=== PATIENT | female | born 1980 | race Caucasian/White ===

== ENCOUNTER → 2020-09-26 17:36 | Outpatient (CLI) | payer BC, SELFPAY ==
--- NOTE | ~2020-09-26 | MM_ITS ---
EXAMINATION: MM screening ollie BI w raul HISTORY: Screening TECHNIQUE: Craniocaudal and mediolateral oblique 3-D tomosynthesis images were obtained and synthetic 2-D images were generated. CAD analysis was submitted and interpreted. COMPARISON: Comparison to multiple prior studies sequentially, with oldest reviewed study dated 11/2010. BREAST PARENCHYMAL COMPOSITION: There are scattered areas of fibroglandular density. FINDINGS: There is no evidence of suspicious mass, calcification, or architectural distortion to sugg est malignancy in either breast. There has been no suspicious interval change. IMPRESSION: 1. No mammographic evidence of malignancy. 2. Recommend routine screening mammography in one year. BI-RADS Category 1: Negative Reviewed, dictated and finalized at location A. IDE UPHOLSTERER
== END ==
PROVIDERS: PCP Family Medicine Sports Medicine; Visit Provider Obstetrics & Gynecology
DX: Z12.31 Encounter for screening mammogram for malignant neoplasm of breast (principal)
CPT/HCPCS: 77063; 77067

== ENCOUNTER → 2020-11-21 09:30 | Outpatient (CLI) | payer BC, SELFPAY ==
--- NOTE | ~2020-11-21 | MR_ITS ---
EXAMINATION: MR orbits face neck wo con EXAM DATE: 11/21/2020 10:40 INDICATION: Left neck mass Neck Mass . Symptoms 2 months. TECHNIQUE: Magnetic resonance imaging (MRI) images of the MR orbits face neck wo con were obtained. The following sequences were acquired: Axial T1, axial T2 STIR, coronal T1, coronal T2 STIR, sagittal T1. There is no prior study for comparison. FINDINGS: Some bulging to the left supraclavicular skin contour, with expected fat signal intensity d eep to this, potentially could be a lipoma. No capsule is identified. The orbits are unremarkable. So me metallic artifact from right-sided dental fillings. Submandibular and probably glands are unremark able. No cervical or superior mediastinal lymphadenopathy. Tonsils are normal in size. Mild to modera te disc disease at C5-6. IMPRESSION: Possible left supraclavicular lipoma. Reviewed, dictated and finalized at location B. [employer] SALES REPRESENTATIVE
== END ==
PROVIDERS: PCP Family Medicine Sports Medicine; Visit Provider Otolaryngology
DX: R22.1 Localized swelling, mass and lump, neck (principal)
CPT/HCPCS: 70540

== ENCOUNTER 2020-12-12 02:02 | Outpatient (CLI) | payer BC, SELFPAY ==
[2020-12-12 18:37] LABS: SARS-CoV-2 RNA PCR Negative
== END 2020-12-12 02:03 | disposition home or self-care (01) ==
LOC: ANHCOVIDDT 02:02
PROVIDERS: PCP Family Medicine Sports Medicine; Visit Provider Otolaryngology
DX: Z01.812 Encounter for preprocedural laboratory examination (principal); Z20.822 Contact with and (suspected) exposure to COVID-19
CPT/HCPCS: C9803; U0003; U0005

== ENCOUNTER 2020-12-12 08:07 | Outpatient (CLI) | payer BC, SELFPAY ==
--- NOTE | 2020-12-12 08:08 | ECG_ITS ---
Measurements Intervals [place] Rate: 89 P: 58 AR: 157 QRS: -1 QRSD: 104 T: 12 QT: 369 QTc: 451 Interpretive Statements SINUS RHYTHM NONSPECIFIC T-WAVE ABNORMALITY- ANT/INF LEADS BASELINE ARTIFACT- II, III, AVF BORDERLINE ECG Electronically Signed On 12-12-2020 8:18:44 FIRE MANAGEMENT SPECIALIST by Stan Abel D.O.
== END 2020-12-12 08:08 | disposition home or self-care (01) ==
LOC: ANHSURGERY 08:08
PROVIDERS: PCP Family Medicine Sports Medicine; Visit Provider Otolaryngology
DX: Z20.810 Contact with and (suspected) exposure to anthrax (principal); E78.00 Pure hypercholesterolemia, unspecified
CPT/HCPCS: 93005

== ENCOUNTER 2020-12-15 01:57 | Day surgery (SDC) | payer BC, SELFPAY ==
--- NOTE | 2020-12-13 13:28 | PM.IMHP ---
H&P: HPI History of Present Illness Date/Time: 12/13/20 13:28 Chief Complaint: Left supraclavicular/neck mass Narrative: Radha Gibson is a 40 year old female Who presents for planned surgical procedure. She denies any changes in her past medical history or symptoms. Review of Systems Constitutional: Constitutional: Denies fatigue, Denies fever(s) and Denies lethargy Eyes: Eyes: Denies blurry vision and Denies change in vision ENT: Reports as per HPI Cardiovascular: Cardiovascular: Denies chest pain Respiratory: Respiratory: Denies cough Endocrine: Endocrine: Denies fatigue Hematologic/Lymphatic: Hematologic/Lymphatic: Denies easy bleeding, Denies easy bruising and Denies lymphadenopathy Allergic/Immunologic: Allergic/Immunologic: Denies seasonal rhinorrhea [facility] Social History Social History (Updated 11/06/20 @ 09:48 by Rachel Clark MA) Smoking packs per day: 0.5 Smoking cigarettes per day: 10.0 Years smoked: 10 Smoking pack-years: 5.00 Smoking status: Former smoker Second hand tobacco smoke exposure: No Smoking end date: 11/24/09 Alcohol intake: current Drinks per week: 5 Substance use: never Substance use type: does not use Additional living arrangements comments: AND CHILDREN Spiritual care concerns: No Meds Home Medications and Allergies Home Medications Medication Instructions Recorded Confirmed Type fenofibrate 160 mg tablet 160 mg PO DAILY 11/06/20 12/08/20 History phentermine 37.5 mg capsule 37.5 mg PO DAILY 11/06/20 12/08/20 History Allergies Allergy/AdvReac Type Severity Reaction Status Date / Time No Known Allergies Allergy Verified 11/06/20 09:47 Exam Const: General: cooperative, healthy appearing, comfortable, well developed and alert HENMT: Head: normal to inspection, normocephalic and atraumatic Ears: hearing grossly normal bilaterally, external ears normal, TM's normal bilaterally and EAC's normal General nose exam: Normal external nose present, Normal nares present, No nasal polyps present, Normal nasal mucous membranes and turbinates present and Normal septum present Face and sinus: normal facial exam Mouth: Yes Normal oral and palatal mucosa present, Yes lip normal, Yes tongue normal, Yes oropharynx normal and Yes moist mucous membranes Teeth and gingiva: dentition normal and gingiva normal Throat: posterior oropharynx normal, tonsils normal and uvula midline Eyes: General: appearance normal, both eyes and all related structures Periorbital: periorbital findings normal Eyelids: eyelids normal Conjunctivae: conjunctivae normal Sclera: sclerae normal Neck: Neck: normal visual inspection, full ROM, no lymphadenopathy and other ( Left supraclavicular soft mass) Thyroid: thyroid normal Lymphatic: no lymphadenopathy noted Resp: Effort & Inspection: normal respiratory effort and able to speak in complete sentences Cardio: Jugular venous distension: no JVD Neuro: Cranial nerves: Yes CN's II-XII intact bilaterally Assessment and Plan Assessment and plan (1) Mass of left side of neck: Code(s): R22.1 - Localized swelling, mass and lump, neck Status: Acute Assessment and Plan: The patient presents with a mass of the left supraclavicular region. On physical exam and somewhat radiographically it is consistent with a lipoma. Plan is for the operating room for excision of left neck mass. The risks including bleeding infection damage to surrounding structures including lungs lymphatic drainage vasculature and nerves including the brachial plexus were discussed in great detail. The patient voiced understanding of these risks and agreed. She also understands that myself and my co-surgeon will not explore deeply given the amount of vital structures should the mass not be readily visible.
--- NOTE | 2020-12-14 15:14 | WPDANESEPPF ---
Anes - Initial Pre Proc Eval Procedure: Operation Date: 12/15/20 11:30 Proposed Procedures p Excision Left Neck Mass - Mati Arredondo MD Date/Time: 12/14/20 15:14 Surgeon: Mati Arredondo MD Pre Op Diagnosis: left neck mass Patient Data Age: 40 Gender: F Height: Weight: Allergies Allergy/AdvReac Type Severity Reaction Status Date / Time No Known Allergies Allergy Verified 11/06/20 09:47 Home Medications Medication Instructions Recorded Confirmed Type fenofibrate 160 mg tablet 160 mg PO DAILY 11/06/20 12/08/20 History phentermine 37.5 mg capsule 37.5 mg PO DAILY 11/06/20 12/08/20 History ECG: Date of Service: 12/12/20 Procedure(s): CA 12 lead EKG Accession Number(s): [id number] cc: ~ Measurements Intervals [place] Rate: 89 P: 58 PA: 157 QRS: -1 QRSD: 104 T: 12 QT: 369 QTc: 451 Interpretive Statements SINUS RHYTHM NONSPECIFIC T-WAVE ABNORMALITY- ANT/INF LEADS BASELINE ARTIFACT- II, III, AVF BORDERLINE ECG Electronically Signed On 12-12-2020 8:18:44 SALES REPRESENTATIVE [employer] by Stan Abel D.O. Dictated By: Stan Abel DO 12/12/20 0840 Patient hx anesthesia problems: none Family hx anesthesia problems: none PMFSH Past Medical History Medical History (Updated 12/14/20 @ 15:14 by Obi De Leon MD) Hypercholesterolemia Mass of left side of neck Social History Social History (Updated 11/06/20 @ 09:48 by Rachel Clark MA) Smoking packs per day: 0.5 Smoking cigarettes per day: 10.0 Years smoked: 10 Smoking pack-years: 5.00 Smoking status: Former smoker Second hand tobacco smoke exposure: No Smoking end date: 11/24/09 Alcohol intake: current Drinks per week: 5 Substance use: never Substance use type: does not use Living arrangements: with family Additional living arrangements comments: AND CHILDREN Spiritual care concerns: No Anes - Eval Final PreProcedure Day of Procedure 12/14/20 15:14 Patient weight: overweight Heart: regular rate and rhythm Lungs: clear to auscultation and normal air movement Airway: Mallampati scale class II Neurological: alert and oriented Last oral intake: >/= 8 hours ASA classification: II Emergent: no Anesthetic plan: proceed Anesthesia type and monitoring: general ETT Informed Consent: The patient's anesthetic plan and its attendant risks and benefits were discussed with the patient/family/POA. Questions were solicited and answers provided to the satisfaction of the patient/family/POA.
[2020-12-15] VITALS (7 sets, daily range): BP systolic 130–147; BP diastolic 77–92; PULSE 89–110; RESP 10–20; TEMP 36.4–36.5; O2SAT 93–100; BMI 29.9
--- NOTE | 2020-12-15 06:57 | WPDHPUPDATE1 ---
History and Physical Update Update Date/Time: 12/15/20 06:57 History and Physical has been reviewed, including an updated exam of the patient. There are NO changes in the patient's condition. Risks, benefits, and alternatives have been discussed and questions answered. Patient agrees to proceed with procedure.
[2020-12-15] MEDS: LACTATED RINGERS 1,000 ML 30 ML IV CONT ×2 (10:25→13:10)
[2020-12-15] MEDS: LIDO 1%/EPINEPHRINE 1:100,000 50 ML VIAL INFILTRATE (12:09)
--- NOTE | 2020-12-15 15:58 | P.OP_ITS ---
Procedure Note - Detailed Date of procedure: 12/15/20 Pre-op diagnosis: left neck mass Post-op diagnosis: same Procedure performed: Excision of left supraclavicular mass Description of procedure: The patient was correctly identified and consent was verified in the preoperative holding area. The patient was then brought to the operating room and a time-out was performed. General anesthesia was induced and endotracheal tube was secured the patient's airway and taped the right lower lip. The bed was then properly positioned. The patient was then prepped and positioned for the aforementioned procedures. 2 cc of 1% lidocaine with 1 100 ,000 parts epinephrine was injected deep to the pre drawn surgical incision over the left supraclavicular area and relaxed skin tension line. A 15 blade was utilized to dissect through the skin and dermis. Bovie electrocautery with as well as blunt dissection and bipolar was then utilized to remove an excess amount of fat located in this area. Hemostasis was noted to be excellent following removal. The deep layer was closed with 3 0 Vicryl sutures. The skin was closed with a running 4 0 nylon suture. Prior to closure of the wound it was copiously irrigated and a 10 M[place]gasque suction drain was placed to bulb suction and noted to hold. This marked the end of the procedure. Care the patient was turned over to Anesthesiology. I performed all dictated portions of the procedure. Surgeon: Mati Arredondo MD Estimated blood loss (mL): 5 Drains: Yes Complications: No immediate complications Condition: stable Disposition: PACU
== END 2020-12-15 14:49 | disposition home or self-care (01) ==
PROVIDERS: Family Provider Internal Medicine; PCP Family Medicine Sports Medicine; Visit Provider Otolaryngology
PROC: (CPT 21552; principal; 2020-12-15 11:30)
DX: L98.8 Other specified disorders of the skin and subcutaneous tissue (principal); E78.00 Pure hypercholesterolemia, unspecified; Z87.891 Personal history of nicotine dependence
CPT/HCPCS: 21552; 88304; A9270; J0330; J0690; J1100; J1170; J2250; J2405; J2704; J3010; J7120

== ENCOUNTER → 2021-11-16 09:06 | Outpatient (CLI) | payer BC, SELFPAY ==
--- NOTE | ~2021-11-16 | MM_ITS ---
EXAMINATION: MM screening ollie BI w raul HISTORY: Screening TECHNIQUE: Craniocaudal and mediolateral oblique 3-D tomosynthesis images were obtained and synthetic 2-D images were generated. CAD analysis was submitted and interpreted. COMPARISON: Comparison to multiple prior studies sequentially, with oldest reviewed study dated 07/15. BREAST PARENCHYMAL COMPOSITION: There are scattered areas of fibroglandular density. FINDINGS: There is no evidence of suspicious mass, calcification, or architectural distortion to sugg est malignancy in either breast. There has been no suspicious interval change. IMPRESSION: 1. No mammographic evidence of malignancy. 2. Recommend routine screening mammography in one year. BI-RADS Category 1: Negative Reviewed, dictated and finalized at location A. EWATER MANAGER
== END ==
PROVIDERS: PCP Family Medicine Sports Medicine; Visit Provider Obstetrics & Gynecology
DX: Z12.31 Encounter for screening mammogram for malignant neoplasm of breast (principal)
CPT/HCPCS: 77063; 77067